=== PATIENT | female | born 1935 | race Caucasian/White ===

== ENCOUNTER 2024-11-08 19:41 | Observation (INO) ==
[2024-11-08] MEDS: LACTATED RINGERS 1,000 ML IV SCH (20:37)
[2024-11-08 21:09] LABS: Appearance,Urine Clear (Clear); Bilirubin,Urine Negative (Negative); Color,Urine Yellow; Glucose,Urine (UA) Negative (Negative); Ketones,Urine Negative (Negative); Leukocyte Esterase,Urine Negative /uL (Negative); Nitrate,Urine Negative (Negative); Protein,Urine 100 mg/dL (Negative); Urine Blood Trace-intact ery/mcL (Negative); Urine RBC 12 /hpf (0-3); Urine Squamous Epithelial Cell 4 /hpf (0-4); Urine WBC 3 /hpf (0-4); Urobilinogen,Urine Normal
[2024-11-08 21:22] LABS: Basophils # (Auto) 0.05 K/mcL (0.00-0.30); Basophils % (Auto) 0.5 % (0.0-2.0); Eosinophils # (Auto) 0.24 K/mcL (0.00-0.70); Eosinophils % (Auto) 2.4 % (0.0-7.0); Hematocrit 33.2 % (34.1-44.9); Hemoglobin 9.9 g/dL (11.2-15.7); Lymphocytes # (Auto) 1.01 K/mcL (1.50-4.80); Lymphocytes % (Auto) 10.1 % (15.5-49.0); Mean Cell Volume 95.1 fL (80.0-100.0); Mean Corpuscular HGB Conc 29.8 g/dL (31.0-36.0); Mean Platelet Volume 9.7 fL (8.8-12.5); Monocytes # (Auto) 0.93 K/mcL (0.10-0.90); Monocytes % (Auto) 9.3 % (1.0-12.0); Neutrophils % (Auto) 77.5 % (38.0-78.0); Platelet Count 236 K/mcL (140-440); RBC 3.49 M/mcL (3.59-5.38); Red Cell Distribution Width 13.7 % (11.5-14.5)
[2024-11-08] MEDS: cefTRIAXone 2 GM in DEXTROSE 5% IN WATER 50 ML IV ONE (21:32)
[2024-11-08] MEDS: TRIAMCINOLONE CREAM 0.1% 15G 1 DOSE TUBE TOPICAL SCH (21:33)
[2024-11-08] MEDS: CLOTRIMAZOLE CRM 1% 1 DOSE TUBE TOPICAL ONE (21:33)
[2024-11-08 21:35] LABS: INR 0.9 (0.9-1.1); Prothrombin Time 13.2 sec (11.9-14.5)
[2024-11-08 21:41] LABS: ALT/SGPT 28 U/L (<40); AST/SGOT 27 U/L (<32); Albumin 3.8 gm/dL (3.2-5.2); Albumin/Globulin Ratio 1.5 (1.0-2.3); Alkaline Phosphatase 94 U/L (39-117); Bilirubin,Total 0.2 mg/dL (0.1-1.0); Blood Urea Nitrogen 22 mg/dL (8-23); Calcium 9.3 mg/dL (8.6-10.4); Carbon Dioxide 28 mmol/L (22-30); Chloride 104 mmol/L (96-108); Globulin 2.6 gm/dL (2.2-3.7); Glomerular Filtration Rate 57; Glucose 86 mg/dL (70-105); Potassium 4.4 mmol/L (3.3-5.1); Sodium 142 mmol/L (133-145)
[2024-11-08] MEDS: CLOTRIMAZOLE/BETAMETHASONE DIP 45 GM CREAM..G. TP STA (21:46)
[2024-11-08] MEDS: FUROSEMIDE 20 MG/2 ML VIAL IV ONE ×2 (22:36→23:00)
[2024-11-09] MEDS: IPRATROPIUM/ALBUTEROL 3 ML AMPUL.NEB NEB ONE ×3 (01:20→14:00)
[2024-11-09] MEDS: methylPREDNISolone SOD SUCC 125 MG/2 ML VIAL IV ONE (10:55)
[2024-11-09 12:18] LABS: Phosphorous 3.3 mg/dL (2.5-4.5)
[2024-11-09 12:21] LABS: ALT/SGPT 28 U/L (<40); AST/SGOT 32 U/L (<32); Albumin 3.7 gm/dL (3.2-5.2); Albumin/Globulin Ratio 1.4 (1.0-2.3); Alkaline Phosphatase 100 U/L (39-117); Bilirubin,Total 0.5 mg/dL (0.1-1.0); Blood Urea Nitrogen 19 mg/dL (8-23); Calcium 9.5 mg/dL (8.6-10.4); Carbon Dioxide 25 mmol/L (22-30); Chloride 102 mmol/L (96-108); Globulin 2.7 gm/dL (2.2-3.7); Glomerular Filtration Rate 66; Glucose 89 mg/dL (70-105); Potassium 4.5 mmol/L (3.3-5.1); Sodium 140 mmol/L (133-145)
[2024-11-09 12:52] LABS: Basophils # (Auto) 0.06 K/mcL (0.00-0.30); Basophils % (Auto) 0.5 % (0.0-2.0); Eosinophils # (Auto) 0.27 K/mcL (0.00-0.70); Eosinophils % (Auto) 2.3 % (0.0-7.0); Hematocrit 35.6 % (34.1-44.9); Hemoglobin 10.5 g/dL (11.2-15.7); Lymphocytes # (Auto) 1.26 K/mcL (1.50-4.80); Mean Cell Volume 95.2 fL (80.0-100.0); Mean Corpuscular HGB Conc 29.5 g/dL (31.0-36.0); Mean Platelet Volume 9.8 fL (8.8-12.5); Monocytes # (Auto) 0.85 K/mcL (0.10-0.90); Monocytes % (Auto) 7.4 % (1.0-12.0); Neutrophils % (Auto) 78.7 % (38.0-78.0); Platelet Count 235 K/mcL (140-440); RBC 3.74 M/mcL (3.59-5.38); Red Cell Distribution Width 13.3 % (11.5-14.5); WBC 11.5 K/mcL (4.5-11.0)
[2024-11-09] MEDS ORDERED: POLYETHYLENE GLYCOL 3350 17 GM PACKET PO PRN (13:46)
[2024-11-09] MEDS ORDERED: IPRATROPIUM/ALBUTEROL 3 ML AMPUL.NEB NEB PRN (13:46)
[2024-11-09] MEDS: IPRATROPIUM/ALBUTEROL 3 ML AMPUL.NEB NEB SCH (13:55)
[2024-11-09] MEDS: LACTATED RINGERS 1,000 ML IV SCH (16:28)
[2024-11-09] MEDS: 0.9 % SODIUM CHLORIDE 10 ML SYRINGE IV SCH (16:29)
[2024-11-09 18:36] LABS: C-Reactive Protein 3.55 mg/dL (0.03-0.80)
[2024-11-09] MEDS: ACETAMINOPHEN 325 MG TABLET PO PRN (19:18)
[2024-11-09] MEDS: MELATONIN 3 MG TABLET PO SCH (19:18)
[2024-11-09] MEDS: HEPARIN 5,000 UNIT/ML VIAL SQ SCH (21:26)
[2024-11-09] MEDS: SENNOSIDES 1 TABLET PO SCH (21:55)
[2024-11-10 06:46] LABS: Basophils # (Auto) 0.04 K/mcL (0.00-0.30); Basophils % (Auto) 0.4 % (0.0-2.0); Hematocrit 30.4 % (34.1-44.9); Hemoglobin 9.1 g/dL (11.2-15.7); Lymphocytes # (Auto) 0.93 K/mcL (1.50-4.80); Lymphocytes % (Auto) 8.9 % (15.5-49.0); Mean Cell Volume 94.4 fL (80.0-100.0); Mean Corpuscular HGB Conc 29.9 g/dL (31.0-36.0); Mean Platelet Volume 9.8 fL (8.8-12.5); Monocytes # (Auto) 1.23 K/mcL (0.10-0.90); Monocytes % (Auto) 11.7 % (1.0-12.0); Neutrophils % (Auto) 77.8 % (38.0-78.0); Platelet Count 200 K/mcL (140-440); RBC 3.22 M/mcL (3.59-5.38); Red Cell Distribution Width 13.4 % (11.5-14.5); WBC 10.5 K/mcL (4.5-11.0)
[2024-11-10 07:24] LABS: ALT/SGPT 29 U/L (<40); AST/SGOT 29 U/L (<32); Albumin 3.4 gm/dL (3.2-5.2); Albumin/Globulin Ratio 1.5 (1.0-2.3); Alkaline Phosphatase 85 U/L (39-117); Bilirubin,Direct < 0.2 mg/dL (0-0.3); Bilirubin,Total < 0.2 mg/dL (0.1-1.0); Blood Urea Nitrogen 33 mg/dL (8-23); Calcium 8.9 mg/dL (8.6-10.4); Carbon Dioxide 28 mmol/L (22-30); Chloride 102 mmol/L (96-108); Globulin 2.3 gm/dL (2.2-3.7); Glomerular Filtration Rate 45; Glucose 89 mg/dL (70-105); Lactate Dehydrogenase 231 U/L (135-225); Phosphorous 4.9 mg/dL (2.5-4.5); Potassium 5.2 mmol/L (3.3-5.1); Sodium 141 mmol/L (133-145); Triglycerides 50 mg/dL (<150); Uric Acid 4.9 mg/dL (2.5-8.0)
[2024-11-10] MEDS: PANTOPRAZOLE 40 MG TABLET PO SCH (07:39)
[2024-11-10] MEDS: methylPREDNISolone SOD SUCC 40 MG/ML VIAL IV SCH ×2 (08:40→21:00)
[2024-11-10 09:18] LABS: C-Reactive Protein 3.27 mg/dL (0.03-0.80)
[2024-11-10] MEDS: 0.9 % SODIUM CHLORIDE 500 ML IV ONE (12:48)
[2024-11-10] MEDS: IPRATROPIUM/ALBUTEROL 3 ML AMPUL.NEB NEB SCH (13:26)
[2024-11-10] MEDS: 0.9 % SODIUM CHLORIDE 1,000 ML IV SCH (15:32)
[2024-11-10 17:42] LABS: Potassium 5.6 mmol/L (3.3-5.1)
[2024-11-10] MEDS: SODIUM ZIRCONIUM CYCLOSILICATE 10 GM PACKET PO SCH (18:04)
[2024-11-10] MEDS: BENZONATATE 100 MG CAPSULE PO SCH (21:04)
[2024-11-11 00:04] LABS: ALT/SGPT 30 U/L (<40); AST/SGOT 31 U/L (<32); Albumin 3.4 gm/dL (3.2-5.2); Albumin/Globulin Ratio 1.5 (1.0-2.3); Alkaline Phosphatase 83 U/L (39-117); Bilirubin,Direct < 0.2 mg/dL (0-0.3); Bilirubin,Total < 0.2 mg/dL (0.1-1.0); Blood Urea Nitrogen 28 mg/dL (8-23); Calcium 8.4 mg/dL (8.6-10.4); Carbon Dioxide 28 mmol/L (22-30); Chloride 105 mmol/L (96-108); Globulin 2.2 gm/dL (2.2-3.7); Glomerular Filtration Rate 57; Glucose 149 mg/dL (70-105); Lactate Dehydrogenase 231 U/L (135-225); Phosphorous 3.5 mg/dL (2.5-4.5); Potassium 4.5 mmol/L (3.3-5.1); Sodium 141 mmol/L (133-145); Triglycerides 65 mg/dL (<150)
[2024-11-11 07:15] LABS: Basophils # (Auto) 0.03 K/mcL (0.00-0.30); Basophils % (Auto) 0.3 % (0.0-2.0); Eosinophils # (Auto) 0.02 K/mcL (0.00-0.70); Eosinophils % (Auto) 0.2 % (0.0-7.0); Hematocrit 29.2 % (34.1-44.9); Hemoglobin 8.6 g/dL (11.2-15.7); Lymphocytes # (Auto) 0.65 K/mcL (1.50-4.80); Lymphocytes % (Auto) 7.5 % (15.5-49.0); Mean Cell Volume 95.1 fL (80.0-100.0); Mean Corpuscular HGB Conc 29.5 g/dL (31.0-36.0); Mean Platelet Volume 9.7 fL (8.8-12.5); Monocytes # (Auto) 0.72 K/mcL (0.10-0.90); Monocytes % (Auto) 8.4 % (1.0-12.0); Neutrophils % (Auto) 83.3 % (38.0-78.0); Platelet Count 208 K/mcL (140-440); RBC 3.07 M/mcL (3.59-5.38); Red Cell Distribution Width 13.5 % (11.5-14.5); WBC 8.6 K/mcL (4.5-11.0)
[2024-11-11 07:49] LABS: ALT/SGPT 29 U/L (<40); AST/SGOT 27 U/L (<32); Albumin 3.5 gm/dL (3.2-5.2); Albumin/Globulin Ratio 1.7 (1.0-2.3); Alkaline Phosphatase 79 U/L (39-117); Bilirubin,Direct < 0.2 mg/dL (0-0.3); Bilirubin,Total < 0.2 mg/dL (0.1-1.0); Blood Urea Nitrogen 25 mg/dL (8-23); Calcium 8.7 mg/dL (8.6-10.4); Carbon Dioxide 29 mmol/L (22-30); Chloride 106 mmol/L (96-108); Globulin 2.1 gm/dL (2.2-3.7); Glomerular Filtration Rate 66; Glucose 116 mg/dL (70-105); Lactate Dehydrogenase 234 U/L (135-225); Phosphorous 3.8 mg/dL (2.5-4.5); Potassium 4.6 mmol/L (3.3-5.1); Sodium 143 mmol/L (133-145); Triglycerides 57 mg/dL (<150)
[2024-11-11] MEDS: MAG HYDROX/AL HYDROX/SIMETH 30 ML ORAL.SUSP PO PRN (12:57)
[2024-11-12 06:53] LABS: Basophils # (Auto) 0.02 K/mcL (0.00-0.30); Basophils % (Auto) 0.2 % (0.0-2.0); Eosinophils # (Auto) 0.01 K/mcL (0.00-0.70); Eosinophils % (Auto) 0.1 % (0.0-7.0); Hematocrit 31.3 % (34.1-44.9); Hemoglobin 9.2 g/dL (11.2-15.7); Lymphocytes # (Auto) 0.66 K/mcL (1.50-4.80); Lymphocytes % (Auto) 7.5 % (15.5-49.0); Mean Corpuscular HGB Conc 29.4 g/dL (31.0-36.0); Mean Platelet Volume 10.1 fL (8.8-12.5); Monocytes # (Auto) 0.77 K/mcL (0.10-0.90); Monocytes % (Auto) 8.8 % (1.0-12.0); Neutrophils % (Auto) 82.8 % (38.0-78.0); Platelet Count 213 K/mcL (140-440); RBC 3.26 M/mcL (3.59-5.38); Red Cell Distribution Width 13.6 % (11.5-14.5); WBC 8.8 K/mcL (4.5-11.0)
[2024-11-12 07:10] LABS: ALT/SGPT 44 U/L (<40); AST/SGOT 45 U/L (<32); Albumin 3.4 gm/dL (3.2-5.2); Albumin/Globulin Ratio 1.5 (1.0-2.3); Alkaline Phosphatase 84 U/L (39-117); Bilirubin,Direct < 0.2 mg/dL (0-0.3); Bilirubin,Total < 0.2 mg/dL (0.1-1.0); Blood Urea Nitrogen 33 mg/dL (8-23); Calcium 9.2 mg/dL (8.6-10.4); Carbon Dioxide 34 mmol/L (22-30); Chloride 103 mmol/L (96-108); Globulin 2.3 gm/dL (2.2-3.7); Glomerular Filtration Rate 66; Glucose 118 mg/dL (70-105); Lactate Dehydrogenase 245 U/L (135-225); Phosphorous 2.8 mg/dL (2.5-4.5); Potassium 4.8 mmol/L (3.3-5.1); Sodium 143 mmol/L (133-145); Triglycerides 58 mg/dL (<150); Uric Acid 4.3 mg/dL (2.5-8.0)
[2024-11-12] MEDS: ONDANSETRON 4 MG/2 ML VIAL IV PRN (09:20)
[2024-11-12 13:40] VITALS: O2SAT 98
[2024-11-12 16:00] VITALS: TEMP 98.6
== END 2024-11-12 14:30 | disposition hospice, inpatient (51) ==
LOC: MEDSUR 19:41 → ED 19:41 → MEDSUR 11-09 13:45
PROVIDERS: ADMIT Student in an Organized Health Care Education/Training Program; ATTEND Student in an Organized Health Care Education/Training Program